=== PATIENT | male | born 1940 | race Caucasian/White ===

== ENCOUNTER 2017-08-29 09:49 | Outpatient (CLI) | payer MEDICARE ==
[~2017-08-29 09:49] MED LIST: CLOP75TA35 PO; EZET10TA14 PO; GLUC1CAP17 PO; ISOS30TA6 PO; NEBI5TAB10 PO; OMEG300C2 PO; ROSU40TA PO
== END 2017-08-29 23:59 | disposition home or self-care (01) ==
LOC: VAS 09:49
DX: I65.23 Occlusion and stenosis of bilateral carotid arteries (principal); I10 Essential (primary) hypertension; J45.909 Unspecified asthma, uncomplicated; Z87.891 Personal history of nicotine dependence
CPT/HCPCS: 93880

== ENCOUNTER 2025-01-04 14:03 | Emergency (ER) | payer MEDICARE, OTHER ==
[~2025-01-04] VITALS: Ht 177.8 cm; Wt 81.8 kg
[~2025-01-04 14:03] MED LIST changes: +CLOP75TA34 PO; -CLOP75TA35 PO; -EZET10TA14 PO; +EZET10TA6 PO; -ISOS30TA6 PO; +ISOS30TA84 PO; -NEBI5TAB10 PO; +NEBI5TAB9 PO
[2025-01-04 14:04] VITALS: BP 119/56; PULSE 69; RESP 18; TEMP 98.5; O2SAT 98
--- NOTE | 2025-01-04 14:35 | RADIOLOGY REPORT ---
DI CHEST,TWO VIEWS CLINICAL HISTORY: SOB COMPARISON: None TECHNIQUE: Frontal and lateral view of the chest was obtained FINDINGS: Lines and Tubes: None Lungs: No focal consolidation. Pleura: No effusion. No pneumothorax. Cardiomediastinal contours: Unremarkable Bones: No acute osseous abnormality. IMPRESSION: No acute cardiopulmonary disease.
[2025-01-04 15:21] LABS: MEAN PLATELET VOLUME 7.4 FL (7.4-10.4); RED CELL DISTRIBUTION WIDTH 13.0 % (11.5-14.5)
[2025-01-04 15:42] LABS: CREATININE 1.17 MG/DL (0.60-1.10); PRO BRAIN NATRIURETIC PEPTIDE 1797 PG/ML (0-450); TOTAL CARBON DIOXIDE 25.8 MMOL/L (24-32); eCRCL 47 ML/MIN; eGFR 59 ML/MIN
--- NOTE | 2025-01-04 16:27 | ELECTROCARDIOGRAPH REPORT ---
[facility] Test Date: 2025-01-04 Test Time: 14:10:14 Pat Name: ROBY MACIAS Department: EMERGENCY ROOM Room: Gender: M Incident Response Lead: PM : 1940 Requested By: DEPARTMENT EMERGENCY Order Number: [id number] Reading MD: Dr. Rome Burgos Measurements Intervals [place] Rate: 69 P: 49 AL: 175 QRS: 76 QRSD: 100 T: 2 QT: 406 QTc: 435 Interpretive Statements Sinus rhythm Baseline wander in lead(s) V4 Electronically Signed On 01-05-2025 20:42:[address] Rome Burgos Please click the below link to view image of tracing.
== END 2025-01-04 19:21 | disposition left against medical advice (07) ==
LOC: ER 14:03
DX: R06.02 Shortness of breath (principal); Z88.6 Allergy status to analgesic agent
CPT/HCPCS: 36415; 71046; 80048; 83880; 85025; 93005; 99281

== ENCOUNTER 2025-02-18 09:18 | Emergency (ER) | payer MEDICARE, OTHER ==
[~2025-02-18] VITALS: Ht 185.4 cm; Wt 90.0 kg
[2025-02-18 09:23] VITALS: TEMP 97.7
--- NOTE | 2025-02-18 09:41 | ELECTROCARDIOGRAPH REPORT ---
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
--- NOTE | 2025-02-18 09:54 | RADIOLOGY REPORT ---
CHEST RADIOGRAPH INDICATION: CP TECHNIQUE: Single frontal view of the chest was obtained COMPARISON: DI CHEST,TWO VIEWS on DOS: 01/04/25 FINDINGS: Lines and Tubes: Median sternotomy Lungs: Congestion Pleura: No effusion. No pneumothorax. Cardiomediastinal contours: Cardiomegaly Bones: Unremarkable IMPRESSION: Increased interstital prominence. This may represent pulmonary vascular congestion and/or viral pneumonia. Clinical correlation advised.
[2025-02-18 10:05] LABS: MEAN PLATELET VOLUME 7.1 FL (7.4-10.4); RED CELL DISTRIBUTION WIDTH 13.6 % (11.5-14.5)
[2025-02-18 10:32] LABS: CREATININE 1.02 MG/DL (0.60-1.10); PRO BRAIN NATRIURETIC PEPTIDE 992 PG/ML (0-450); TOTAL CARBON DIOXIDE 28.3 MMOL/L (24-32); eCRCL 59 ML/MIN; eGFR 69 ML/MIN
--- NOTE | 2025-02-18 10:49 | Physician Documentation ---
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 Patient is in his baseline mental status, and he usually lives alone at night. In the mornings when the infant caregiver comes, she noticed that his cooked meals are not empty, patient denies fever, cough, sob, chest pain. this morning infant caregiver also noticed that the patients face appears pale, and he was a little short of breath, but patient denies any sob now he is currently AAOx2, in his usual baseline mental status, he is usually able to eat and shower by himself. no recent falls, denies UTI symtpoms Medication Reconciliation Allergies: Coded Allergies: aspirin (Verified Allergy, Intermediate, RASH/ WELTS, 01/04/25) Scheduled Cefpodoxime Proxetil (Cefpodoxime Proxetil), 1 TAB PO Q12H Clopidogrel Bisulfate (Clopidogrel), 1 TABLET PO DAILY, (Reported) Ezetimibe (Zetia), 1 TABLET PO DAILY, (Reported) Gluc Echevarria/Chondro Echevarria A/Vit C/Mn (Glucosamine 1,500 Complex Cp), 1 EACH PO DAILY, (Reported) Isosorbide Mononitrate (Isosorbide Mononitrate Er), 1 TABLET PO DAILY, (Reported) Nebivolol Hcl (Bystolic tablet), 1 TABLET PO DAILY, (Reported) [place]-3 Fatty Acids (Fish Oil), 300 MG PO BID, (Reported) Rosuvastatin Calcium* (Crestor*), 1 TAB PO DAILY, (Reported) Past Medical History Other Past Medical History: dementia angina hyperlipidemia Patient History: (Cancer) Malignant carcinoid tumor sister sister ricardo silva Alcohol Use: None Drug Use: none Lives with: Alone Lives In: Home Review of Systems All Other Systems at this time: Reviewed and Negative Physical Exam Vital Signs: Temperature: 97.7, Source: Temporal, Heart Rate: 50, Respiratory Rate: 21, BP: 146/80, Pulse Oximetry: 98, Weight: 90.000 General Appearance: alert, no apparent distress General Appearance AAOx 2, not in apparent distress Respiratory: lungs clear, normal breath sounds Chest: no accessory muscle use Cardiovascular: regular rate, rhythm Cardiovascular S1, S2 heard, 1+ edema Gastrointestinal: normal palpation, non-tender, bowels sounds present Progress Results/Orders Results/Orders Orders - HECTOR VILLEGAS MD Chest,Single View (02/18/25 09:39) Monitor (02/18/25 09:39) Saline Lock (02/18/25 09:39) Oxygen (02/18/25 09:39) Hs Troponin I W Calculations (02/18/25 11:39) Hs Troponin I W Calculations (02/18/25 12:39) Completed Orders - HECTOR VILLEGAS MD Chest,Single View (02/18/25 09:39) Cbc/Diff (02/18/25 09:39) BMP (02/18/25 09:39) PBNP (02/18/25 09:39) Electrocardiogram (02/18/25 09:39) Hs Troponin I W Calculations (02/18/25 09:39) Procalcitonin (02/18/25 10:28) Vital Signs 02/18/25 02/18/25 02/18/25 02/18/25 09:23 11:03 11:31 11:47 Temp 97.7 Pulse 50 61 56 Resp 21 15 15 15 B/P (MAP) 146/80 191/79 (116) 163/87 (112) Pulse Ox 98 94 98 02/18/25 12:04 Pulse 56 Resp 15 B/P (MAP) 172/83 Pulse Ox 98 Laboratory Tests Test 02/18/25 09:39 02/18/25 09:53 02/18/25 11:00 02/18/25 11:04 Procalcitonin < 0.05 White Blood Count 6.8 Red Blood Count 4.77 Hemoglobin 14.7 Hematocrit 44.0 Mean Corpuscular Volume 92.3 Mean Corpuscular Hemoglobin 30.9 Mean Corpuscular Hemoglobin Concent 33.5 Red Cell Distribution Width 13.6 Platelet Count 271 Mean Platelet Volume 7.1 L Neutrophils (%) (Auto) 75.7 H Lymphocytes (%) (Auto) 14.8 L Monocytes (%) (Auto) 8.6 Eosinophils (%) (Auto) 0.6 Basophils (%) (Auto) 0.3 Neutrophils # (Auto) 5.1 Lymphocytes # (Auto) 1.0 L Monocytes # (Auto) 0.6 Eosinophils # (Auto) 0.0 Basophils # (Auto) 0.0 CBC Comment Sodium Level 143 Potassium Level 3.9 Chloride Level 108 H Carbon Dioxide Level 28.3 Anion Gap 7 L Blood Urea Nitrogen 14 Creatinine 1.02 Estimated GFR/1.73 m2 69 BUN/Creatinine Ratio 13.7 Glucose Level 96 Calcium Level 8.9 Troponin I High Sensitivity 17 Pro-B-Type Natriuretic Peptide 992 H Albumin 3.7 Chemistry Comments Urine Specimen Description Non-specified Urine Color Yellow Urine Clarity Clear Urine pH 5.5 Urine Specific [place] >=1.030 Urine Protein Negative Urine Glucose (UA) Negative Urine Ketones Trace H Urine Occult Blood Trace-intact Urine Nitrite Negative Urine Bilirubin Small Urine Urobilinogen 0.2 Urine Leukocyte Esterase Negative Urine RBC 3-10 Urine WBC 5-10 H Urine Squamous Epithelial Cells Few Urine Transitional Epithelial Cells Few Urine Bacteria Few Urine Mucus Moderate Urine Culture Indicated Indicated Volume Urine Centrifuged 10 ml Urine Comment Influenza Type A Antigen Negative Influenza Type B Antigen Negative SARS-CoV-2 Antigen (Rapid) Negative Microbiology Date/Time Source Procedure Growth Status 02/18/25 11:29 Urine Nonspecified Urine Culture - Final NO GROWTH AFTER 2 DAYS Complete Medical Decision Making Additional information obtaine: old records, heel seater Findings 85 year old male with h/o dementia, Angina/HLD, 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 Patient is in his baseline mental status, and he usually lives alone at night. In the mornings when the infant caregiver comes, she noticed that his cooked meals are not empty, patient denies fever, cough, sob, chest pain. this morning infant caregiver also noticed that the patients face appears pale, and he was a little short of breath, but patient denies any sob now he is currently AAOx2, in his usual baseline mental status, he is usually able to eat and shower by himself. no recent falls, denies UTI symtpoms CBC, CMP- normal pro BNP- elevated to 992 EKG- First degree AV block with hear rate of 47/min, patient is on bisoprolol for angina procal- negative UA- positive for possible UTI CXR- increased interstitial markings- 2/2 congestion vs viral pneumonia Symptoms of fatigue and decreased appetite- could be 2/2 possible UTI Differential Dx:Considerations: Include: anemia, electrolyte imbalance, hypovolemia, renal failure, TIA, other (UTI) Departure Time of Disposition: 11:39 Disposition: 01 HOME / SELF CARE / HOMELESS Impression: Primary Impression: UTI (urinary tract infection) Condition: Improved Discharge Instructions: Urinary Tract Infection, Adult, [id number] Additional Instructions: please f/u with your PCP within a week we prescribed antibiotic for UTI for a week keep yourself well hydrated return to the ER in case if any recurrence of symptoms Referrals: NO PRIMARY CARE PROVIDER (PCP) Prescriptions Cefpodoxime Proxetil (Cefpodoxime Proxetil) 100 Mg Tablet 1 TAB PO Q12H for 14 Days, #28 TAB 0 Refills Prov: HECTOR VILLEGAS MD 02/18/25 Education Educated: Patient, Other Educated regarding: diagnosis, treatment, prognosis Additional Comment Seen with PA/MULE PACKER The patient presented with a complaint of weakness, the patient was found to have a urinary tract infection. The patient is hemodynamically stable he was treated with antibiotics, discharged. The patient was seen with the resident physician and the residence note has been reviewed by myself and I agree with the note and the assessment plan as written. The patient was examined by myself. And I have supervised all aspects of the patients care Signature Scribe Signature: no scribe. Attestation: Findings, assessment, plan, and dispo d/w Dr. Nelly ROWE The note accurately reflects work and decisions made by me.Hector Villegas MD 02/20/25 16:02 CARLEY ARRIETA, RES Feb 18, 2025 10:49 HECTOR VILLEGAS MD Feb 20, 2025 16:02
[2025-02-18 11:11] LABS: LEUKOCYTE ESTERASE ,URINE NEGATIVE (Neg); NITRITES, URINE NEGATIVE (Neg); OCCULT BLOOD,URINE TRACE-INTACT (Neg)
[2025-02-18 11:14] LABS: UA COLLECTION TYPE NON-SPECIFIED
[2025-02-18 11:28] LABS: MUCUS STRANDS MODERATE /LPF (Neg); SQUAMOUS EPITHELIAL CELL,UR FEW /LPF (FEW)
[2025-02-18] MEDS ORDERED: CEFP100T7 PO (11:38)
[2025-02-18 12:04] VITALS: BP 172/83; PULSE 56; RESP 15; O2SAT 98
[2025-02-18 12:15] LABS: INFLUENZA TYPE A ANTIGEN RAPID NEGATIVE (Negative); INFLUENZA TYPE B ANTIGEN RAPID NEGATIVE (Negative)
== END 2025-02-18 12:08 | disposition home or self-care (01) ==
LOC: ER 09:18
DX: N39.0 Urinary tract infection, site not specified (principal); E78.5 Hyperlipidemia, unspecified; Z88.6 Allergy status to analgesic agent; Z79.899 Other long term (current) drug therapy; Z60.2 Problems related to living alone; Z20.822 Contact with and (suspected) exposure to COVID-19
CPT/HCPCS: 36415; 71045; 80048; 81001; 83880; 84145; 84484; 85025; 87088; 87804; 87811; 93005; 99285